=== PATIENT | male | born 1990 | race Caucasian/White ===

== ENCOUNTER 2017-10-25 20:39 | Emergency (ER) | payer OTHER, SELFPAY ==
[2017-10-25 20:40] VITALS: BP 136/98; PULSE 84; RESP 16; TEMP 37.3; O2SAT 99; BMI 27.1
--- NOTE | 2017-10-25 22:48 | RAD_ITS ---
STUDY: X-RAY - SOFT TISSUE NECK REASON FOR EXAM: Male, 26 years old. Feels chicken bone stuck in throat TECHNIQUE: 2 view(s) of the neck were obtained. COMPARISON: None. FINDINGS: Normal visualized nasopharynx, oropharynx, hypopharynx. Normal epiglottis. Normal visualized subglottic tracheal air column. Normal prevertebral soft tissue structures. Normal visualized osseous structures. The soft tissue structures are unremarkable. No foreign body. RAD/Neck for Soft Tissue IMPRESSION: Normal x-ray soft tissue neck. No foreign body. Electronically Signed: Elmo Schultz DO at 23:29 EST , Service support ,
--- NOTE | 2017-10-25 22:49 | ED.VISSUMM ---
- ER Visit Summary Date of Service: 10/25/17 Chief Complaint: [] Painful swallowing History of Present Illness: The patient is a 26 M states he thinks he might have swallowed a fishbone. 730 tonight he was at a fish dinner and swallowed and thinks he might of swallowed a bone. He does not remember there being a bone in his mouth however. He is drinking normally. Trying to drink Coca-[employer]a. He has had a remote chicken bone in his throat and thought that might have happened again. Physical Examination: Vital signs reviewed General: Well-nourished well-developed. Drinking Coca-[employer]a normally Head: Normocephalic atraumatic Eyes: Pupils equal round and reactive to light extraocular movements intact ENT: TMs clear no hemotympanum no trauma Neck: Nontender full range of motion Cardiovascular: Regular rate rhythm no murmurs normal S1-S2 Respiratory: No distress clear to auscultation bilaterally chest nontender Abdomen: Soft nontender nondistended normal bowel sounds no masses Back: Nontender no CVA tenderness Extremities: Nontender active range of motion ?4 extremities no trauma Skin: Normal color no trauma Neuro alert oriented cranial nerves II through XII intact normal strength sensation reflexes Test Results: [] Emergency Department Course and Treatment: [] Given viscous lidocaine. Soft tissue neck x-ray obtained. After treatment continues to swallow normally. X-ray negative. At this time patient may just have scratches esophagus. Treatment Plan: [] Disposition: [] Impression: [] Foreign body sensation esophagus This note was generated with [employer] dictation software. It may contain incorrect words, spelling, and punctuation that were not noted in review of the chart prior to signing ED Disposition - Plan for ED Patient: Chief Complaint: Foreign Body Referrals: Care Physician,No Primary [Primary Care Provider] -
--- NOTE | 2017-10-25 23:49 | ED.DEP ---
ED Disposition - Plan for ED Patient: Disposition: Home or Assisted Living Chief Complaint: Foreign Body Instructions: ED Foreign Body Esophageal Rslv Referrals: Care Physician,No Primary [Primary Care Provider] - Stephen Elizondo DO [NON-STAFF] -
[2017-10-26 00:03] VITALS: BP 132/80; PULSE 67; RESP 16; O2SAT 97
== END 2017-10-26 00:04 | disposition home or self-care (01) ==
PROVIDERS: Emergency Provider Emergency Medicine
DX: T18.128A Food in esophagus causing other injury, initial encounter (principal)
CPT/HCPCS: 70360; 99283

== ENCOUNTER 2025-05-28 15:53 | Emergency (ER) | payer SELFPAY ==
[2025-05-28 15:54] VITALS: BP 163/116; PULSE 89; RESP 20; TEMP 36.6; O2SAT 99; BMI 28.2
--- NOTE | 2025-05-28 16:23 | EKG12_ITS ---
Test Reason : CP Blood Pressure : */* mmHG Vent. Rate : 83 BPM Atrial Rate : 83 BPM P-R Int : 138 ms QRS Dur : 90 ms QT Int : 340 ms P-R-T Axes : 47 19 17 degrees QTcB Int : 399 ms Normal sinus rhythm Normal ECG Confirmed by Ubaldo Sebastian ([id number]), video effects editor FRANK HOWE ([id number]) on 05/30/2025 5:47:02 AM Referred By: SAMIRA/VINNY Confirmed By: Ubaldo Sebastian
--- NOTE | 2025-05-28 16:28 | RAD_ITS ---
EXAM: XR Chest, 2 Views CLINICAL INDICATION: CHEST PAIN TECHNIQUE: Frontal and lateral views of the chest. COMPARISON: No relevant prior studies available. FINDINGS: LUNGS AND PLEURAL SPACES: Unremarkable. No consolidation. No pneumothorax. HEART: Unremarkable. No cardiomegaly. MEDIASTINUM: Unremarkable. Normal mediastinal contour. BONES/JOINTS: Unremarkable. No acute fracture. RAD/Chest PA and Lateral IMPRESSION: No acute cardiopulmonary process. Reading Location: [id number]
[2025-05-28 17:21] LABS: Hematocrit 48.7 % (40-54); Hemoglobin 16.9 g/dL (13.0-16.5); Immature Granulocytes Count 0.010 X10^3/uL (0.0-0.0); Mean Corp Hgb Conc 34.7 g/dL (32-36); Mean Corpuscular Volume 83.4 fL (80-94); Mean Platelet Vol. 9.9 fl (6.2-12.0); NRBC Flagged by Analyzer 0 % (0-5); Platelet Count 221 K/mm3 (150-450); RBC Distribution Width CV 12.8 % (11.6-14.6); RBC Distribution Width SD 38.9 fl (35.1-43.9); Red Blood Count 5.84 M/mm3 (4.6-6.2); White Blood Count 8.8 K/mm3 (4.4-11.0)
[2025-05-28 17:39] LABS: Anion Gap 10 (5-15); BUN 11 mg/dL (4-19); BUN/Creat Ratio 9.6 RATIO (10-20); Calcium,Total 9.8 mg/dL (7.6-11.0); Carbon Dioxide 27.7 mmol/L (21.0-32.0); Chloride 102 mmol/L (98-108); Estimated Creatinine Clearance 92.80 ml/min (50-250); Glucose 86 mg/dL (70-99); Potassium 4.3 mmol/L (3.3-5.1); Troponin T High Sensitivity < 6 ng/L (<=22)
[2025-05-28 20:12] VITALS: BP 151/104; PULSE 77; RESP 16; O2SAT 100
--- OUTSIDE RECORDS SUMMARY | 2025-05-28 20:16 | XMS RPT_ITS | CCD ---
Author Organization [facility] Care Team Providers Care Assembler Wet Wash Name Role Phone NORMA DAMON David Unavailable Unavailable PHYSICIAN, NONE Unavailable Unavailable Primay Care Physicia, No Unavailable Unavail able Tripp Barragan Unavailable Unavailable Allergies Allergy Classification Reported Allergen(s) Allergy Type Date of Onset Reaction(s) Facility (2 sources) Penicillins; Translations: [PENICILLINS] Drug allergy (disorder) 10-25-2017 Unknown [facility] Repository Results Test Name Value Interpretation Reference Range Facility ED NOTEon 03-18-2024 ED NOTE HNO ID: [id number] Author: OK PARIKH RN Service: Emergency Medicine Author Type: Registered Nurse Type: ED Notes Filed: 03/19/2024 11:28 Note Text: Patient Call Back Information How are you doing ? better Did we appropriately manage your pain? Yes Did you understand your discharge instructions? Yes Did you get your prescriptions filled? Yes Were you able to make a follow-up appointment with your physician? Yes Were you comfortable during your stay here? Yes Did a member of the ER nursing team round on you during your visit? Yes You will receive a patient satisfaction survey in the mail in the nest 2 weeks, please take the time to fill out the survey as your input from your ER visit is very important to us. Yes Can we do anything else to help you? No [facility] ED NOTE HNO ID: [id number] Author: ANDRY ELIAS RN Service: Emergency Medicine Author Type: Registered Nurse Type: ED Notes Filed: 03/18/2024 23:24 Note Text: Patient advised diastolic BP reading is high, repeat 134/101. Teaching provided re: need to establish and follow up with a PCP. Patient verb und. Dc instr include wound care, s/s infection, suture removal in 10 days. Verb und, agreeable to plan. Ambulates from ER Normal [facility] ED NOTE HNO ID: [id number] Author: ANDRY ELIAS, SHARRI Service: Emergency Medicine Author Type: Registered Nurse Type: ED Notes Filed: 03/18/2024 22:11 Note Text: 20 minutes prior to arrival, patient was removing bold with an impact gun and left middle finger got in the way of the flange. Ragged-edge 4 laceration, bleeding controlled prior to arrival Normal [facility] ED PROV NOTEon 03-18-2024 ED PROV NOTE HNO ID: [id number] Author: ALISSA BARRERA DO Service: Emergency Medicine Author Type: Physician Type: ED Provider Notes Filed: 03/18/2024 23:08 Note Text: ED Provider Note Patient Name: Benjamin Stein : 1990 SERVICE DATE: 03/18/24 History Patient presents with: Hand Injury Patient is a 33-year-old male who states about 20 minutes prior to arrival he was removing a bolt with an impact gun when it slipped sustaining a laceration to the left middle finger. Patient states that he was concerned that he needed sutures and presents for evaluation. He states he is right-hand dominant. He is unsure when his last tetanus was. Denies any other injuries. History reviewed. No pertinent past medical history. History reviewed. No pertinent surgical history. No family history on file. Social History Tobacco Use Smoking status: Never Smokeless tobacco: Never Vaping Use Vaping Use: Never used Substance and Sexual Activity Alcohol use: Yes Comment: rare Drug use: Never Sexual activity: Not on file ALLERGIES Allergen Reactions Penicillins Hives Review of Systems Skin: Positive for wound. All other systems reviewed and are negative. Physical Exam Vitals [03/18/24 2208] BP Pulse Temp Temp src Resp SpO2 Weight Height 152/107 (!) 92 36.4 ?C (97.5 ?F) Temporal 20 97 % 74.8 kg (165 lb) -- Physical Exam Vitals and nursing note reviewed. Exam conducted with a water supply technician present. Constitutional: General: He is not in acute distress. Appearance: Normal appearance. HENT: Head: Normocephalic and atraumatic. Eyes: General: No scleral icterus. Extraocular Movements: Extraocular movements intact. Pupils: Pupils are equal, round, and reactive to light. Pulmonary: Effort: Pulmonary effort is normal. Musculoskeletal: General: Signs of injury present. No deformity. Normal range of motion. Right hand: Normal. Left hand: Laceration (3.6 cm laceration left middle finger) present. No swelling, deformity or bony tenderness. Normal range of motion. Normal pulse. Skin: General: Skin is warm and dry. Capillary Refill: Capillary refill takes less than 2 seconds. Findings: Laceration (On the palmar aspect of the left middle finger extending from the pad of the finger along the ulnar aspect to the proximal phalangeal joint measuring about 3.6 cm in length) present. Neurological: General: No focal deficit present. Mental Status: He is alert and oriented to person, place, and time. Psychiatric: Mood and Affect: Mood normal. Behavior: Behavior normal. Diagnostic Testing ED Labs Ordered and Reviewed - No data to display LAC REPAIR Date/Time: 03/18/2024 11:05 PM Performed by: Alissa Barrera DO Authorized by: Alissa Barrera DO Risks discussed: Poor cosmetic result Anesthesia (see MAR for exact dosages): Anesthesia method: Nerve block Block location: Digital Block needle gauge: 24 G Block anesthetic: Lidocaine 1% w/o epi Block injection procedure: Introduced needle, incremental injection, negative aspiration for blood and anatomic landmarks identified Block outcome: Anesthesia achieved Laceration details: Location: Finger Finger location: L long finger Length (cm): 3.6 Repair type: Repair type: Simple Pre-procedure details: Preparation: Patient was prepped and draped in usual sterile fashion and imaging obtained to evaluate for foreign bodies Exploration: Hemostasis achieved with: Direct pressure Wound exploration: wound explored through full range of motion Wound extent: no foreign body, no signs of injury, no tendon damage, no underlying fracture and no vascular damage Contaminated: no Treatment: Area cleansed with: Shur-Clens and saline Amount of cleaning: Standard Irrigation solution: Sterile saline Irrigation volume: 200 Irrigation method: Syringe Visualized foreign bodies/material removed: no Skin repair: Repair method: Sutures Suture size: 4-0 Suture material: Nylon Suture technique: Simple interrupted Number of sutures: 6 Approximation: Approximation: Close Post-procedure details: Dressing: Non-adherent dressing Patient tolerance of procedure: Tolerated well, no immediate complications ED Course / Clinical Impression Clinical Impressions as of 03/18/24 2303 Laceration of left middle finger without foreign body without damage to nail, initial encounter MDM / Disposition / Plan 33-year-old male presents emergency department with a laceration to his left middle finger. X-ray was obtained shows no foreign bodies. Tetanus was updated. Laceration was repaired described in the procedure note. Sutures removed in 7 to 10 days monitor for redness swelling drainage signs of infection and return immediately. Management Radiology Reports XR DIGIT GENERAL 3V FRONTAL/LAT/OBL LEFT (Results Pending) Meds Given During Visit ED Medication Administration from 03/18/2024 22 (more content not included)... [facility] XR DIGIT 3V FRONTAL/LAT/OBL LTon 03-18-2024 XR DIGIT 3V FRONTAL/LAT/OBL LT * * *Final Report* * * DATE OF EXAM: Mar 18 2024 10:32PM LDX [id number] - XR DIGIT 3V FRONTAL/LAT/OBL LT / PROCEDURE REASON: Hand trauma, no prior imaging * * * * Physician Interpretation * * * * HISTORY: Hand trauma, no prior imaging TECHNIQUE: XR DIGIT 3V FRONTAL/LAT/OBL LT FINDINGS/ IMPRESSION: Soft tissue laceration involving the palmar aspect of the distal long finger, without visualized radiopaque foreign body or underlying acute fracture. Access Clinician: PSCB Transcribe Date/Time: Mar 18 2024 11:24P Dictated by : MICHAEL BURRELL MD This examination was interpreted and the report reviewed and electronically signed by: MICHAEL BURRELL MD on Mar 18 2024 11:26PM EST [id number] [facility] CNOVon 07-11-2019 CNOV Office Visit (UCWSTR ) BENJAMIN STEIN ([id number]) 1990 M Date Time Provider Department 07/11/19 1:15 PM LORELEI RANDLE) WSTR During your visit today, we recorded the following information about you: Temperature Pulse Respiration Blood pressure 98.9 degrees 103/minute 18/minute 120/84 Weight 74.4 kg Lorelei Randle APRN.CNP 07/11/2019 1:50 PM Signed Subjective HPI HPI Benjamin Stein is a 28 year old male who presents today for CC of cough, congestion. This started 1 month ago. Has tried otc medication. Symptoms are worsened by nothing. Risk factors no sick exposures, nonsmoker. .Patient presents with: Cough: chest congestion and SOB x 1 month No past medical history on file. No past surgical history on file. ALLERGIES Penicillins MEDICATIONS No prescriptions on file. No family history on file. Social History Tobacco Use - Smoking status: Never Smoker - Smokeless tobacco: Never Used Substance Use Topics - Alcohol use: Not on file - Drug use: Not on file Review of Systems Constitutional: Negative for fever. HENT: Negative for congestion, ear pain, nosebleeds and sore throat. Respiratory: Positive for cough and sputum production. Negative for shortness of breath and wheezing. Cardiovascular: Negative for chest pain. Musculoskeletal: Negative for neck pain. Skin: Negative for itching and rash. Objective Blood pressure 120/84, pulse 103, temperature 37.2 ?C (98.9 ?F), temperature source Tympanic, resp. rate 18, weight 74.4 kg (164 lb), SpO2 98 %. Physical Exam Constitutional: He is oriented to person, place, and time and well-developed, well-nourished, and in no distress. Non-toxic appearance. He does not have a sickly appearance. No distress. HENT: Head: Normocephalic and atraumatic. Right Ear: Hearing, tympanic membrane, external ear and ear canal normal. Left Ear: Hearing, tympanic membrane, external ear and ear canal normal. Nose: Nose normal. Mouth/Throat: Uvula is midline, oropharynx is clear and moist and mucous membranes are normal. Eyes: Pupils are equal, round, and reactive to light. Conjunctivae and lids are normal. Right eye exhibits no discharge. Left eye exhibits no discharge. No scleral icterus. Neck: Trachea normal and normal range of motion. Neck supple. Cardiovascular: Normal rate, regular rhythm and normal heart sounds. Pulmonary/Chest: Effort normal and breath sounds normal. Lymphadenopathy: He has no cervical adenopathy. Neurological: He is alert and oriented to person, place, and time. Skin: No rash noted. He is not diaphoretic. ASSESSMENT/PLAN: 1. Cough - ICD9: 786.2, ICD10: R05 -symptoms for 1 month, recently productive - Discussed supportive care - Limit exposure to smoke and other inhaled irritants - Discussed possible red flags and when to seek medical attention - Follow up in 3-5 days or sooner if no better or worse -If you experience chest pain/shortness of breath go to ER - AZITHROMYCIN 200 MG/5 ML ORAL SUSPENSION - PREDNISOLONE 15 MG/5 ML ORAL SOLUTION Prescription instructions reviewed with patient as applicable. Patient advised if symptoms do not improve or if symptoms worsen sooner, to contact the office for further evaluation by their primary care physician. Potential red flag symptoms discussed with the patient. Reviewed appropriate action plan to take if red flag symptoms occur. Patient agreeable to treatment plan. ASHKAN De Leon APRN.CNP 07/11/2019 1:35 PM Signed ASSESSMENT/PLAN: 1. Cough - ICD9: 786.2, ICD10: R05 - Discussed supportive care - Limit exposure to smoke and other inhaled irritants - Discussed possible red flags and when to seek medical attention - Follow up in 3-5 days or sooner if no better or worse -If you experience chest pain/shortness of breath go to ER Referring Provider: SELF [200] Allergies As of Date: 07/11/2019 Noted Allergy Reaction PENICILLINS 07/11/2019 4 - Hives Date Reviewed: 07/11/2019 Reviewed by: Marj Vazquez Equipment Driver - Fully Assessed Reason for Visit: Cough [28] Cmt: chest congestion and SOB x 1 month Primary Visit Diagnosis:Cough [R05] Order(s):azithromycin (ZITHROMAX) 200 mg/5 mL suspensionTake 12.5 mL by mouth as directed.Disp: 36.5 BottleRfl: 0 prednisoLONE (PRELONE) 15 mg/5 mL syrupTake 14 mL by mouth once daily for 5 days.Disp: 70 mLRfl: 0 Prescriptions as of 07/11/2019 Sig: AZITHROMYCIN 200 MG/5 ML ORAL* Take 12.5 mL by mouth as dire* PREDNISOLONE 15 MG/5 ML ORAL * Take 14 mL by mouth once ness* Problem List As Of Date: 07/11/2019 (None) Other instructions from your clinician: ASSESSMENT/PLAN: 1. Cough - ICD9: 786.2, ICD10: R05 - Discussed supportive care - Limit exposure to smoke and other inhaled irritants - Discussed possible red flags and when to seek medical attention - Follow up in 3-5 days or sooner if no better or worse -If you experience chest pain/shortness of breath go to ER Prescriptions ordered this encounter Disp Refills Start End AZITHROMYCIN 200 MG/5 ML ORAL SUSPEN* 36.5* 0 07/11/2019 Cmt: 12.5 mg day one, then 6ml days 2-5 Route: ORAL Sig: Take 12.5 mL by mouth as directed. PREDNISOLONE 15 MG/5 ML ORAL SOLUTION 70 mL 0 07/11/2019 07/16/2019 Route: ORAL Sig: Take 14 mL by mouth once daily for 5 days. Letter Text Encounter Status:Closed by LORELEI RANDLE CNP on 07/11/19 [facility] PROGRESSon 07-11-2019 PROGRESS HNO ID: [id number] Author: Lorelei (Du) Service: ? Author Type: Nurse Practitioner Type: Progress Notes Filed: 07/11/2019 1:50 PM Note Text: Subjective HPI HPI Benjamin Stein is a 28 year old male who presents today for CC of cough, congestion. This started 1 month ago. Has tried otc medication. Symptoms are worsened by nothing. Risk factors no sick exposures, nonsmoker. .Patient presents with: Cough: chest congestion and SOB x 1 month No past medical history on file. No past surgical history on file. ALLERGIES Penicillins MEDICATIONS No prescriptions on file. No family history on file. Social History Tobacco Use - Smoking status: Never Smoker - Smokeless tobacco: Never Used Substance Use Topics - Alcohol use: Not on file - Drug use: Not on file Review of Systems Constitutional: Negative for fever. HENT: Negative for congestion, ear pain, nosebleeds and sore throat. Respiratory: Positive for cough and sputum production. Negative for shortness of breath and wheezing. Cardiovascular: Negative for chest pain. Musculoskeletal: Negative for neck pain. Skin: Negative for itching and rash. Objective Blood pressure 120/84, pulse 103, temperature 37.2 ?C (98.9 ?F), temperature source Tympanic, resp. rate 18, weight 74.4 kg (164 lb), SpO2 98 %. Physical Exam Constitutional: He is oriented to person, place, and time and well-developed, well-nourished, and in no distress. Non-toxic appearance. He does not have a sickly appearance. No distress. HENT: Head: Normocephalic and atraumatic. Right Ear: Hearing, tympanic membrane, external ear and ear canal normal. Left Ear: Hearing, tympanic membrane, external ear and ear canal normal. Nose: Nose normal. Mouth/Throat: Uvula is midline, oropharynx is clear and moist and mucous membranes are normal. Eyes: Pupils are equal, round, and reactive to light. Conjunctivae and lids are normal. Right eye exhibits no discharge. Left eye exhibits no discharge. No scleral icterus. Neck: Trachea normal and normal range of motion. Neck supple. Cardiovascular: Normal rate, regular rhythm and normal heart sounds. Pulmonary/Chest: Effort normal and breath sounds normal. Lymphadenopathy: He has no cervical adenopathy. Neurological: He is alert and oriented to person, place, and time. Skin: No rash noted. He is not diaphoretic. ASSESSMENT/PLAN: 1. Cough - ICD9: 786.2, ICD10: R05 -symptoms for 1 month, recently productive - Discussed supportive care - Limit exposure to smoke and other inhaled irritants - Discussed possible red flags and when to seek medical attention - Follow up in 3-5 days or sooner if no better or worse -If you experience chest pain/shortness of breath go to ER - AZITHROMYCIN 200 MG/5 ML ORAL SUSPENSION - PREDNISOLONE 15 MG/5 ML ORAL SOLUTION Prescription instructions reviewed with patient as applicable. Patient advised if symptoms do not improve or if symptoms worsen sooner, to contact the office for further evaluation by their primary care physician. Potential red flag symptoms discussed with the patient. Reviewed appropriate action plan to take if red flag symptoms occur. Patient agreeable to treatment plan. Lorelei Randle APRN.ATTENDING UROLOGIST Normal [facility] Discharge Instructionon 10-[address] [facility] [address] [place], [place] [address]Fbhmaulbj Swodeoevjfh41/21/18 2349MR#: [id number] Acct: [id number]: BENJAMIN STEIN Rep #: [id number]: 1990 From: Tripp Barragan MDPCP: Care Physician, No Primary Status: DEP ERED Disposition- Plan for ED Patient:Disposition: Home or Assisted LivingChief Complaint: Foreign BodyInstructions: ED Foreign Body Esophageal RslvReferrals:Care Physician,No Primary [Primary Care Provider] -Stephen Elizondo, DO [NON-STAFF] -What to do if you have ProblemsFor any increased pain, shortness of breath, bleeding, nausea or vomiting, chest pain, or anyunexpected problems, contact your Primary Care Provider. Call [facility] ([phone])or report to the closest Emergency Room.Call 911 if necessary.10/26/17 042 Date Tripp Barragan [facility] Signature (If Indicated): Date __CC: No Primary Care Physician Normal [facility] Emergency Department Summary on 10-26-2017 Emergency Department [facility] [address] [place], [place] [address]Vdbusvukl Department Jgorqab12/21/18 2249MR#: [id number] Acct: [id number]: BENJAMIN STEIN Rep #: [id number]: 1990 26 From: Tripp Barragan MDPCP: Care Physician, No Primary Status: DEP ER- ER Visit SummaryDate of Service: 10/25/17Chief Complaint: [] Painful swallowingHistory of Present Illness: The patient is a 26 M states he thinks he might have swallowed afishbone. 730 tonight he was at a fish dinner and swallowed and thinks he might of swallowed abone. He does not remember there being a bone in his mouth however. He is drinking normally.Trying to drink Coca-Cola. He has had a remote chicken bone in his throat and thought thatmight have happened again.Physical Examination: Vital signs reviewedGeneral: Well-nourished well-developed. Drinking Coca-Cola normallyHead: Normocephalic atraumaticEyes: Pupils equal round and reactive to light extraocular movements intactENT: TMs clear no hemotympanum no traumaNeck: Nontender full range of motionCardiovascular: Regular rate rhythm no murmurs normal S1-X4Ihxhlylmlti: No distress clear to auscultation bilaterally chest nontenderAbdomen: Soft nontender nondistended normal bowel sounds no massesBack: Nontender no CVA tendernessExtremities: Nontender active range of motion 4 extremities no traumaSkin: Normal color no traumaNeuro alert oriented cranial nerves II through XII intact normal strength sensation reflexesTest Results: []Emergency Department Course and Treatment: [] Given viscous lidocaine. Soft tissue neck x-rayobtained. After treatment continues to swallow normally. X-ray negative. At this timepatient may just have scratches esophagus.Treatment Plan: []Disposition: []Impression: [] Foreign body sensation esophagusThis note was generated with [employer] dictation software. It may contain incorrect words,spelling, and punctuation that were not noted in review of the chart prior to signingED Disposition- Plan for ED Patient:Chief Complaint: Foreign BodyReferrals:Care Physician,No Primary [Primary Care Provider] -What to do if you have ProblemsFor any increased pain, shortness of breath, bleeding, nausea or vomiting, chest pain, or anyunexpected problems, contact your Primary Care Provider. Call [facility] ([phone])or report to the closest Emergency Room.Call 911 if necessary.10/26/17 0422 Date Tripp Barragan [facility]ign Signature (If Indicated): Date __CC: No Primary Care Physician Normal [facility] Neck for Soft Tissueon 10-26 Neck for Soft Tissue [facility] SYSTEM[facility] [address], [place] [address]Plwt for Soft TissueMR#: [id number] Acct: [id number]: BENJAMIN STEIN Rep #: [id number]: 1990 M 26 From: Elmo KraftCP: Care Physician, No Primary Status: REG ERStudy: Neck for Soft Tissue Date of Exam: 10/25/17Exam# [id number] Ordering Dr: Tripp Barragan MDSTUDY: X-RAY - SOFT TISSUE NECKREASON FOR EXAM: Male, 26 years old. Feels chicken bone stuck in throatTECHNIQUE: 2 view(s) of the neck were obtained.COMPARISON: None. FIND INGS:Normal visualized nasopharynx, oropharynx, hypopharynx.Normal epiglottis. Normal visualized subglottic tracheal air column.Normal prevertebral soft tissue structures. Normal visualized osseousstructures.The soft tissue structures are unremarkable. No foreign body. ORDE R #: [id number] RAD/Neck for Soft TissueIMPRESSION:Catrina l x-ray soft tissue neck.No foreign body.Electronically Signed:Elmo Schultz DO at 23:29 ESTTel , Service support , XP: No Primary Care Physician; Tripp Barragan MD Access Clinician:Estella Pan [facility] Emergency Room Note on 10-26-2017 [facility] Room Note Normal [facility]ending [facility] To [facility] ([place] Pat Eduon 10-26-2017 Pat Edu Normal Pending Sale To [facility] ([place]) Patient Summary Documentson 10-26-2017 Patient Summary Documents Normal [facility]ending [facility] To [facility] [place] Encounters Encounter Date Encounter Type Care Provider Facility Start: 03-18-2024 Emergency department patient visit Facility:[facility] Start: 10-26-2017 End: 10-26-2017 Emergency department patient visit NORMA DAMON Facility:B Start: 10-25-2017 End: 10-26-2017 Emergency department patient visit No Primay Care Physicia Facility:[facility] Payers Date Payer Category Payer Private Health Insurance [id number] 2017 Private Health Insurance [id number] 2017 Private Health Insurance [id number] Summary Purpose Family History No Family History Records FoundNo Family History Records FoundNo Family History Records FoundNo Family History Records Found Advance Directives No Advanced Directives Records FoundNo Advanced Directives Records FoundNo Advanced Directives Records FoundNo Advanced Directives Records Found Additional Source Comments (unrecognized sect ion and content) No Status Records FoundNo Status Records FoundNo Status Records FoundNo Status Records Found INFORMATION SOURCE (unrecogn ized section and content) DATE CREATED AUTHOR 02/23/2018 [facility] ([place] DATE CREATED AUTHOR AUTHOR'S ORGANIZ ATION 02/23/2018 [facility] DATE CREATED AUTHOR AUTHOR'S ORGANIZ ATION 07/11/2019 [facility] DATE CREATED AUTHOR AUTHOR'S ORGANIZ ATION 03/22/2024 [facility] FOR RECORDS PERTAINING TO PATIENTS WHO ARE OR HAVE BEEN ENROLLED IN A CHEMICAL DEPENDENCY/SUBSTANCEABUSE PROGRAM, SOME INFORMATION MAY BE OMITTED. This clinical summary was aggregated from multiple sources. Caution should be exercised in using it in the provision of clinical care. This summary normalizes information from multiple sources, and as a consequence, information in this document may materially change the coding, format and clinical context of patient data. In addition, data may be omitted in some cases. CLINICAL DECISIONS SHOULD BE BASED ON THE PRIMARY CLINICAL RECORDS. [employer] [facility]. provides no warranty or guarantee of the accuracy or completeness of information in this document.
--- NOTE | 2025-05-28 20:31 | EDS_ITS ---
HPI History of Present Illness Chief Complaint: Chest Pain Narrative Narrative: 34-year-old male who denies significant past medical history presents with chest pain that began at around 4:00 in the morning. This was approximately 16 hours ago. States it woke him from sleep. He states he has problems with acid reflux and indigestion. It felt similar to that but extremely severe as have someone had punched him or a horse kicked him in the chest. It lasted approximately an hour and a half and settled down so he was able to go back to sleep at around 5:30 in the morning. He later got up and went to work and at around 9:00, the pain returned but shifted more towards the left side of his chest. He states he became nauseated, and diaphoretic. He denies shortness of breath. It has been improving but somewhat consistent all day. He states that as he gets older he becomes more concerned about his health, so he presents today for evaluation. He denies any other exacerbating or alleviating factors. Non-smoker. PFSH PFS Medical History no medical history Home Medications ?Medication ?Instructions ?Recorded ?Last Taken ?Type NK 10/25/17 Unknown History Allergy/AdvReac Type Severity Reaction Status Date / Time Penicillins Allergy Unknown Verified 05/28/25 15:56 Surgical History no surgical history Social History Smoking Status: Current some day smoker tobacco type: cigarettes ROS ROS ED ROS Narrative Review of systems positive for midsternal chest pain, shifting to the left with nausea and diaphoresis earlier today. No exacerbating or alleviating factors. Positive improvement in symptoms over time. EXAM Physical Exam Const Vital Signs: 05/28/25 15:54 05/28/25 20:12 05/28/25 20:12 Temperature 97.8 F Temperature Source Oral Pulse Rate 89 77 Respiratory Rate 20 H 16 Respiratory Effort Blood Pressure 163/116 H 151/104 H Blood Pressure Mean 131 119 Pulse Ox 99 100 100 Oxygen Delivery Method Room Air Room Air Room Air 05/28/25 20:12 05/28/25 21:02 Temperature Temperature Source Pulse Rate 73 Respiratory Rate 16 Respiratory Effort Normal Non-Labored Blood Pressure 138/102 H Blood Pressure Mean 114 Pulse Ox 99 Oxygen Delivery Method Room Air Heart Score History: Slightly/Non-Suspicious ECG: Normal Age: </= 45 years Risk Factors: 1 or 2 Risk Factors (History of elevated blood pressure reading) Troponin: </= Normal Limit Score: 1 MDM MDM MDM Narrative Medical decision making narrative: The differential diagnosis includes but not limited to ACS versus pneumonia versus pneumothorax. I have low clinical suspicion for aortic dissection as he is not having tearing back pain, and I have a low clinical suspicion for pulmonary embolism as well. He is neither tachycardic nor hypoxic, and he does not have risk factors for DVT. Chest pain protocol was initiated by RN. EKG obtained and interpreted by myself independently as normal sinus rhythm at 83 bpm without ectopy or acute ST changes. No STEMI. I reviewed his laboratory work that has returned thus far and he has normal white count of 8.8 with hemoglobin slightly hemoconcentrated at 16.9, hematocrit 48.7, platelet count 221. BMP is grossly normal with a normal glucose, sodium normal 140, potassium 4.3, chloride 102. Initial high-sensitivity troponin is less than 6. Chest x-ray in 1 view interpreted by myself independently shows no evidence of a n acute process, no pneumonia or pneumothorax. I reviewed the radiology report which confirms my independent interpretation. His repeat troponin is also less than 6. Hence, I feel he has been ruled out for ACS with biomarkers. At this point in time, I feel he can be discharged to follow-up with a primary care provider. Return instructions to the emergency department were reviewed. Disposition is discharged home in stable condition. History & Record Review Discussion w/independent historian: Patient Additional record(s) reviewed:: Prior ED visit (No frequent ED visits, 1 prior visit years ago.) Lab Data Attestation: I reviewed the patient's lab results. Labs: Laboratory Results - last 24 hr 05/28/25 05/28/25 17:07 20:09 WBC 8.8 RBC 5.84 Hgb 16.9 H Hct 48.7 MCV 83.4 MCH 28.9 MCHC 34.7 RDW Std Deviation 38.9 RDW Coeff of Nadine 12.8 Plt Count 221 MPV 9.9 Immature Gran % (Auto) 0.100 Neut % (Auto) 53.9 Lymph % (Auto) 38.5 Cobb % (Auto) 6.9 Eos % (Auto) 0.3 Baso % (Auto) 0.3 Absolute Neuts (auto) 4.7 Absolute Lymphs (auto) 3.40 Nucleated RBC % 0 Sodium 140 Potassium 4.3 Chloride 102 Carbon Dioxide 27.7 Anion Gap 10 BUN 11 Creatinine 1.10 Estim Creat Clear Calc 92.80 Est GFR (MDRD) Non-Af 90 BUN/Creatinine Ratio 9.6 L Glucose 86 Calcium 9.8 Troponin T High Sens < 6 Troponin T Hi Sens 2 Hr < 6 Radiography Chest X-Ray - ED: 1 View, Read by ED Physician, Read by Radiologist and No Acute Disease Diagnostic Testing: Clinical Impression(s) from Imaging Studies Chest X-Ray 05/28/25 16:28 IMPRESSION: No acute cardiopulmonary process. [facility] Chief Complaint: Chest Pain ED Provider: Robin Alvarez Dx/Rx/DC Orders Clinical Impression: Chest pain, History of gastroesophageal reflux (GERD) Instructions: ED Chest Pain, Uncertain Cause Prescriptions: No Action NK Primary Care Provider: Care Physician,No Primary Referrals: Gerry August MD [Med Staff - Active Staff, Family Practice] - 3-5 Days if not improving Care Physician,No Primary [Primary Care Provider, Medical] Activity Restrictions/Additional Instructions: Return to the emergency department with increased pain, new or worsening symptoms. Follow-up with a primary care provider. Print Language: Khmer Disposition Disposition: Home, Self Care
[2025-05-28 20:54] LABS: Troponin T High Sens 2 HR < 6 ng/L (<=22)
[2025-05-28 21:02] VITALS: BP 138/102; PULSE 73; RESP 16; O2SAT 99
[2025-05-28 22:31] VITALS: BP 139/89; PULSE 76; RESP 16; TEMP 36.7; O2SAT 100
== END 2025-05-28 22:32 | disposition home or self-care (01) ==
PROVIDERS: Emergency Provider Emergency Medicine; Visit Provider Emergency Medicine
DX: R07.9 Chest pain, unspecified (principal); F17.210 Nicotine dependence, cigarettes, uncomplicated
CPT/HCPCS: 36415; 71046; 80048; 84484; 85025; 93005; 99283